=== PATIENT | female | born 2000 | race Two or more races ===

== ENCOUNTER 2025-05-31 09:27 | Emergency (ER) | payer OTHER ==
[~2025-05-31] VITALS: Ht 160 cm; Wt 85.7 kg
[2025-05-31] MEDS ORDERED: DEXAMETHASONE SODIUM PHOSPHATE 4 MG/ML VIAL IM STA (10:48)
[2025-05-31] MEDS ORDERED: KETOROLAC TROMETHAMINE 30 MG VIAL IM STA (10:48)
[2025-05-31] MEDS ORDERED: DEXAMETHASONE SODIUM PHOSPHATE 4 MG/ML VIAL ONE (10:51)
[2025-05-31] MEDS ORDERED: KETOROLAC TROMETHAMINE 30 MG VIAL ONE (10:51)
[2025-05-31 11:09] LABS: BASO % 0.9 % (0.1-1.2); EOS # 0.33 (0.04-0.54); EOS % 4.2 % (0.7-7.0); LYMPH # 2.76 (1.18-3.74); LYMPH % 35.2 % (19.3-53.1); MEAN PLATELET VOLUME 9.30 fl (9.4-12.4); MONO # 0.94 (0.24-0.82); MONO % 12.0 % (4.7-12.5); NEUT # 3.72 (1.56-6.13); NEUT % 47.6 % (34.0-71.1); RED CELL DISTRIBUTION WIDTH 16.7 % (11.6-14.4)
[2025-05-31 11:34] LABS: BUN CREA RATIO 13.0 (7.0-25.0); CREATININE SERUM 0.56 mg/dL (0.55-1.02); GFR 129.86; GLUCOSE FASTING 64.0 mg/dL (65-100); OSMOLALITY SERUM 281.0 MOSM/KG (275-295)
[2025-05-31 13:53] LABS: URINE APPEARANCE Clear; URINE BILIRRUBIN Negative (NEGATIVE); URINE BLOOD Trace; URINE COLOR Yellow; URINE GLUCOSE Negative (NEGATIVE); URINE KETONE Negative (NEGATIVE); URINE LEUKOCYTE Trace; URINE NITRATE Negative; URINE PROTEIN Negative (NEGATIVE); URINE UROBILINOGEN 1.0 E.U./dl
[2025-05-31 13:59] LABS: URINE BACTERIA 567.4 uL (0.0-1933); URINE EPITHELIAL CELLS 17.3 uL (0.0-38.8); URINE RBC 4.2 uL (0.0-20.8); URINE WBC 4.9 uL (0.0-23.2)
[2025-05-31 14:00] LABS: URINE CAST 0.14 uL (0.0-1.40)
== END 2025-05-31 16:50 | disposition home or self-care (01) ==
LOC: ER 09:27
PROVIDERS: General Practice
DX: R10.20 Pelvic and perineal pain unspecified side (principal)